=== PATIENT | female | born 1995 | race African-American/Black ===

== ENCOUNTER 2019-08-20 16:42 | Emergency (ER) | payer MEDICAID ==
[~2019-08-20] VITALS: Ht 162.6 cm; Wt 65.0 kg
[2019-08-20] MEDS ORDERED: IBUPROFEN 600MG TABLET PO ONE (18:00)
[2019-08-20 18:46] VITALS: BP 105/83
== END 2019-08-20 19:00 | disposition home or self-care (01) ==
LOC: ER 16:42
DX: S33.5XXA Sprain of ligaments of lumbar spine, initial encounter (principal); S13.4XXA Sprain of ligaments of cervical spine, initial encounter; V49.88XA Car occupant (driver) (passenger) injured in other specified transport accidents, initial encounter; Y93.89 Activity, other specified; Y92.89 Other specified places as the place of occurrence of the external cause; Y99.8 Other external cause status
CPT/HCPCS: 72040; 72100; 81025; 99284